=== PATIENT | male | born 1995 | race African-American/Black ===

== ENCOUNTER 2017-03-11 23:38 | Emergency (ER) | payer SELFPAY ==
[~2017-03-11] VITALS: Ht 177.8 cm; Wt 84.1 kg
[2017-03-11 23:44] VITALS: BP 142/79
== END 2017-03-12 | disposition left against medical advice (07) ==
LOC: EMS 23:38
DX: S01.81XA Laceration without foreign body of other part of head, initial encounter (principal); V43.62XA Car passenger injured in collision with other type car in traffic accident, initial encounter; Y93.89 Activity, other specified; Y92.89 Other specified places as the place of occurrence of the external cause; Y99.8 Other external cause status; Z53.21 Procedure and treatment not carried out due to patient leaving prior to being seen by health care provider